=== PATIENT | female | born 1950 | race Caucasian/White ===

== ENCOUNTER 2020-04-23 08:33 | Inpatient (IN) | payer MEDICARE ==
[2020-04-23] MEDS ORDERED: Albuterol 0.083% 2.5 MG/3 ML Neb Soln NEB PRN (12:15)
[2020-04-23] MEDS: Piperacillin/Tazobactam 2.25 GM in Sodium Chloride 0.9% 50 ML IV SCH ×2 (13:00→21:06)
[2020-04-23 13:34] LABS: CARBON DIOXIDE,CO2 19.3 mmol/L (21.0-32.0)
[2020-04-23] MEDS: Lactated Ringers 1,000 ML IV SCH ×2 (13:52→22:49)
[2020-04-23] MEDS ORDERED: Acetaminophen 325 MG Tab PO PRN (16:26)
[2020-04-23] MEDS ORDERED: Lactated Ringers 1,000 ML IV ONE (17:02)
[2020-04-23] MEDS ORDERED: Potassium Chloride Riders 40 MEQ in Premix Bag 1 BAG IV ONE (17:30)
--- NOTE | 2020-04-23 17:36 | HP ---
DATE OF : 1950 PRIMARY CARE PHYSICIAN: None PCP HISTORY OF PRESENT ILLNESS: The patient is a pleasant 69-year-old female who was scheduled to undergo a laparoscopic cholecystectomy today by Dr. Garrett in [place]. The patient says last night she started having some epigastric/right upper quadrant pain again. When she checked in to get her gallbladder removed, she was found to have a low potassium and elevated LFTs. Because of this, the patient was admitted to the [facility] and started on some fluid resuscitation with plans for surgery tomorrow. Unfortunately, Dr. Garrett says the anesthesiologist is not there tomorrow, so they are unable to do a surgery tomorrow at that facility, and she was wondering if she could be transfer to [place] for a procedure. The patient apparently has had a bout earlier this month with elevated LFTs, which returned to normal. She had an ultrasound, which showed thickened gallbladder wall, but no dilated common bile duct. It appears that she has had another bout of cholecystitis this morning. I did agree to accept the patient in transfer. The patient now says her abdominal pain has completely resolved. She says she had a little bit of nausea this morning, but that has also resolved. The patient is feeling pretty good. In [place], they also replaced her potassium. PAST MEDICAL HISTORY: Significant for: 1. Brain tumor. 2. Seizure disorder. 3. Nicotine addiction. CURRENT HOME MEDICATIONS: 1. Zyrtec 1 tablet p.o. daily. 2. Ultram 50 mg p.o. q.6 hours p.r.n. 3. Lipitor 20 mg p.o. daily. 4. Zofran 4 mg p.o. q.6 hours p.r.n. 5. Esomeprazole 40 mg p.o. after breakfast. 6. Aspirin 81 mg p.o. daily. 7. Dilantin 400 mg p.o. at bedtime. ALLERGIES: No known drug allergies. PAST SURGICAL HISTORY: 1. Removal of brain tumor. 2. Wrist surgery. FAMILY HISTORY: She reports both her mother and father had strokes. SOCIAL HISTORY: 1. The patient does smoke 1 pack of cigarettes per day. 2. Denies any illicit drug use. 3. She denies any alcohol use. REVIEW OF SYSTEMS: A complete 10+ review of systems was done and was negative except listed in the HPI. GENITOURINARY: The patient says she does have incontinence of urine. NEUROLOGICAL: The patient does have a history of seizure. She had her last ones in 2017. She says she has no deficit from her brain surgery, although she does not get up and walk around as much as she used to. PHYSICAL EXAMINATION: GENERAL: The patient is lying comfortably on hospital bed. She is alert, in no acute distress. She appears tired and "sleepy," Pt reports being very tired because of staying up with the pain last night and getting up early this morning for surgery. VITAL SIGNS: Temperature is 99.6, pulse is 101, blood pressure 122/80, saturating 96% on room air. HEENT: Head is normocephalic and atraumatic. She is wearing glasses. Mouth: Mucous membranes are moist. She is missing her teeth. She says she left her dentures at home. HEART: Regular rate and rhythm. No murmur appreciated. LUNGS: Perhaps a very slight upper respiratory wheeze, but otherwise clear bilaterally. ABDOMEN: Soft, nontender, and nondistended. Does not reveal any masses. EXTREMITIES: No edema. NEUROLOGIC: Grossly no motor or neurologic deficits noted. LABORATORY DATA: Labs done this morning at [place] shows glucose of 193, BUN of 15.6, creatinine of 0.88, sodium 138, potassium 2.99, chloride 100.4, bicarb is 20.3, calcium 9.18. Alkaline phosphatase is 382, ALT is 66, AST is 105, total bilirubin is 2.59. IMAGING: We do not have imaging reports yet, but per report, it did show some gallbladder thickening, no dilation of common bile duct. ASSESSMENT AND PLAN: This is a pleasant 69-year-old female. It sounds like she has had a recurrent episode of cholecystitis. She has had elevation of her LFTs, however, these have reportedly come back to normal after her last episode. Currently, LFTs are a little elevated. Her lipase and amylase are not elevated. I did go over with the patient what a gallbladder was, and its functionality. The patient says she knew this and had no questions because Dr. Garrett has already gone over this with her. I did go over with her the risks, goals, and alternatives of the surgery. Risks include, but are not limited to, bleeding, infection, bile leak, injury to nearby structures such as duodenum or common bile duct, hernia formation, need to convert to open, and retained gallstone. Also, this could be something other than her gallbladder causing these episodes, although I believe this is unlikely. I also went over potentially we might need to do a cholangiogram. I went over with the patient that we will check her LFTs again tomorrow. If they are not decreasing, she might need an MRCP or an ERCP before the surgery. The patient understands. All her questions were answered. We will recheck her potassium and make sure is replacement is going well. All questions were answered. The patient wishes to be DNR currently, but says during the 24 hours after the surgery she is ok with being full code giving the anesthesia time to wear off. DELFIN CABRERA /[id number] MTDD
--- NOTE | 2020-04-23 18:02 | CR ---
Chest: 2 views of the chest were obtained. Comparison: No previous chest imaging. Heart size is normal. Upper mediastinum is normal. Lung markings are mildly increased suspicious for bronchitis. Lungs otherwise are clear with no alveolar type densities. Bony structures are grossly intact. Impression: 1. Possible bronchitis. 2. No other acute abnormality is appreciated. Diagnostic code #2 Study was dictated in MDT
[2020-04-23] MEDS ORDERED: HYDROmorphone 1 MG/ML Syringe IVPUSH PRN (18:51)
[2020-04-23] MEDS: Acetaminophen/HYDROcodone 325-5 MG Tab PO PRN (19:07)
[2020-04-23] MEDS: Phenytoin 100 MG Cap.ER PO SCH (21:06)
--- NOTE | 2020-04-23 21:50 | PN ---
SUBJECTIVE: Currently, the patient states she is feeling good. She has no complaints. Nurse had called earlier, saying the patient was having increased abdominal pain. The patient said that this pain was very minimal and that is completely gone now. She denies any nausea or vomiting. She states overall she feels good. She also had a slight fever, which has now also resolved with some Tylenol. OBJECTIVE: GENERAL: The patient is sitting comfortably in her hospital bed. She is alert and appears much more awake than she did earlier today. She said she had a good rest. VITAL SIGNS: Temperature is 98.6, heart rate is 97, blood pressure is 110/54, saturating 97% on room air. ABDOMEN: Soft and nondistended. LABORATORY DATA: I did do a repeat of her potassium. Her repeat potassium was 5.0, but this was repeated again and was down to 2.8. This is being replaced with 40 mEq of potassium. White cell count was 17.8, hemoglobin is 11.2, platelet count is 136. Lactic acid was drawn, it was 2.5. Chest x-ray showed heart size normal, upper mediastinum is normal. Some lung markings that are mildly increased, the area is marked potentially with bronchitis. ASSESSMENT AND PLAN: This is a pleasant [id number] female with acute cholecystitis. She does have SIRS with an elevated WBC, temperature, Tachycardia. She did get a boluse of fluid and on broad spectrum antibiotics. She also has hypokalemia. We are replacing her potassium. The patient currently is feeling good and has no abdominal pain. We will follow her. I did go over again with the patient that we will follow up on her labs. She will potentially have laparoscopic cholecystectomy tomorrow. EDLFIN CABRERA /[id number] SADIA
[2020-04-24] MEDS: Ondansetron 4 MG/2 ML SDV IVPUSH PRN (00:54)
[2020-04-24] MEDS: Piperacillin/Tazobactam 2.25 GM in Sodium Chloride 0.9% 50 ML IV SCH ×3 (04:03→20:12)
[2020-04-24 06:26] LABS: BLOOD UREA NITROGEN,BUN 13 mg/dL (7.0-18.0); CARBON DIOXIDE,CO2 21.9 mmol/L (21.0-32.0); CHLORIDE,CL 106 mmol/L (98-107); GLUCOSE RANDOM 112 mg/dL (74-106); LIPASE 23 U/L (73-393); POTASSIUM,K 3.7 mmol/L (3.5-5.1); SODIUM,NA 140 mmol/L (136-145)
[2020-04-24] MEDS: Lactated Ringers 1,000 ML IV SCH ×2 (07:19→18:08)
[2020-04-24] MEDS: Omeprazole 20 MG Cap.CR PO SCH (07:35)
[2020-04-24] MEDS: atorvaSTATin 20 MG Tab PO SCH (10:06)
[2020-04-24] MEDS: PSEUDOEPHEDRINE PO SCH (10:06)
[2020-04-24] MEDS: CETIRIZINE HCL PO SCH (10:06)
--- NOTE | 2020-04-24 10:23 | PCM.PREANE ---
Preanesthetic Assessment - Anesthesia/Transfusion/Family Hx Anesthesia History: Prior Anesthesia Without Reaction Family History of Anesthesia Reaction: No Transfusion History: No Prior Transfusion(s) - Review of Systems General: No Symptoms Pulmonary: No Symptoms Cardiovascular: No Symptoms Neurological: Pre-Existing Deficit Other: Reports: None - Physical Assessment NPO Status Date: 04/23/20 Vital Signs: Last Vital Signs Temp 97.4 F 04/24/20 08:00 Pulse 71 04/24/20 08:00 Resp 16 04/24/20 08:00 BP 102/60 04/24/20 08:00 Pulse Ox 94 L 04/24/20 08:00 Height: 5 ft 4 in Weight: 78.063 kg ASA Class: 2 Mental Status: Alert & Oriented x3 Airway Class: Mallampati = 2 Dentition: Reports: Edentulous ROM/Head Extension: Full Lungs: Clear to Auscultation, Normal Respiratory Effort Cardiovascular: Regular Rate, Regular Rhythm - Lab Values: Laboratory Last Values WBC 14.70 K/uL (4.0-11.0) H 04/24/20 05:29 RBC 3.35 M/uL (4.30-5.90) L 04/24/20 05:29 Hgb 10.2 g/dL (12.0-16.0) L 04/24/20 05:29 Hct 29.8 % (36.0-46.0) L 04/24/20 05:29 MCV 89.0 fL (80.0-98.0) 04/24/20 05:29 MCH 30.4 pg (27.0-32.0) 04/24/20 05:29 MCHC 34.2 g/dL (31.0-37.0) 04/24/20 05:29 RDW Std Deviation 45.4 fl (28.0-62.0) 04/24/20 05:29 RDW Coeff of Larisa 14 % (11.0-15.0) 04/24/20 05:29 Plt Count 107 K/uL (150-400) L 04/24/20 05:29 MPV 8.70 fL (7.40-12.00) 04/24/20 05:29 Neut % (Auto) 88.3 % (48.0-80.0) H 04/24/20 05:29 Lymph % (Auto) 8.0 % (16.0-40.0) L 04/24/20 05:29 Runnels % (Auto) 3.3 % (0.0-15.0) 04/24/20 05:29 Eos % (Auto) 0.3 % (0.0-7.0) 04/24/20 05:29 Baso % (Auto) 0.1 % (0.0-1.5) 04/24/20 05:29 Neut # (Auto) 13.0 K/uL (1.4-5.7) H 04/24/20 05:29 Lymph # (Auto) 1.2 K/uL (0.6-2.4) 04/24/20 05:29 Runnels # (Auto) 0.5 K/uL (0.0-0.8) 04/24/20 05:29 Eos # (Auto) 0.1 K/uL (0.0-0.7) 04/24/20 05:29 Baso # (Auto) 0.0 K/uL (0.0-0.1) 04/24/20 05:29 Add Manual Diff YES 04/23/20 16:40 Neutrophils % (Manual) 93 % (48.0-80.0) H 04/23/20 16:40 Band Neutrophils % 2 % 04/23/20 16:40 Lymphocytes % (Manual) 3 % (16.0-40.0) L 04/23/20 16:40 Monocytes % (Manual) 2 % (0.0-15.0) 04/23/20 16:40 Nucleated RBC % 0.0 /100WBC 04/24/20 05:29 Absolute Seg Neuts 16.6 (1.4-5.7) H 04/23/20 16:40 Band Neutrophils # 0.4 04/23/20 16:40 Lymphocytes # (Manual) 0.5 (0.6-2.4) L 04/23/20 16:40 Monocytes # (Manual) 0.4 (0.0-0.8) 04/23/20 16:40 Nucleated RBCs # 0 K/uL 04/24/20 05:29 Lactate 1.7 mmol/L (0.20-2.00) 04/23/20 21:49 Sodium 140 mmol/L (136-145) 04/24/20 05:29 Potassium 3.7 mmol/L (3.5-5.1) 04/24/20 05:29 Chloride 106 mmol/L (98-107) 04/24/20 05:29 Carbon Dioxide 21.9 mmol/L (21.0-32.0) 04/24/20 05:29 BUN 13 mg/dL (7.0-18.0) 04/24/20 05:29 Creatinine 0.8 mg/dL (0.6-1.0) 04/24/20 05:29 Est Cr Clr Drug Dosing 58.12 mL/min 04/24/20 05:29 Estimated GFR (MDRD) > 60.0 ml/min 04/24/20 05:29 Glucose 112 mg/dL (74-106) H 04/24/20 05:29 Calcium 7.8 mg/dL (8.5-10.1) L 04/24/20 05:29 Magnesium 1.4 mg/dL (1.8-2.4) L 04/24/20 06:49 Total Bilirubin 2.5 mg/dL (0.2-1.0) H 04/24/20 05:29 AST 39 IU/L (15-37) H 04/24/20 05:29 ALT 38 IU/L (14-63) 04/24/20 05:29 Alkaline Phosphatase 236 U/L (46-116) H 04/24/20 05:29 Total Protein 5.3 g/dL (6.4-8.2) L 04/24/20 05:29 Albumin 2.2 g/dL (3.4-5.0) L 04/24/20 05:29 Globulin 3.1 g/dL (2.6-4.0) 04/24/20 05:29 Albumin/Globulin Ratio 0.7 (0.9-1.6) L 04/24/20 05:29 Amylase 18 U/L (25-115) L 04/24/20 05:29 Lipase 23 U/L (73-393) L 04/24/20 05:29 Urine Color YELLOW 04/23/20 21:15 Urine Appearance SLT CLOUDY 04/23/20 21:15 Urine pH 5.5 (5.0-8.0) 04/23/20 21:15 Ur Specific Ripley 1.015 (1.001-1.035) 04/23/20 21:15 Urine Protein TRACE mg/dL (NEGATIVE) H 04/23/20 21:15 Urine Glucose (UA) NEGATIVE mg/dL (NEGATIVE) 04/23/20 21:15 Urine Ketones TRACE mg/dL (NEGATIVE) H 04/23/20 21:15 Urine Occult Blood SMALL (NEGATIVE) H 04/23/20 21:15 Urine Nitrite POSITIVE (NEGATIVE) H 04/23/20 21:15 Urine Bilirubin MODERATE (NEGATIVE) H 04/23/20 21:15 Urine Ictotest POSITIVE 04/23/20 21:15 Urine Urobilinogen 2.0 EU/dL (<2.0) H 04/23/20 21:15 Ur Leukocyte Esterase NEGATIVE (NEGATIVE) 04/23/20 21:15 Urine RBC 1-3 (0-2/HPF) 04/23/20 21:15 Urine WBC 5-8 (0-5/HPF) 04/23/20 21:15 Ur Epithelial Cells MODERATE (NONE-FEW) 04/23/20 21:15 Amorphous Sediment LIGHT (NEGATIVE) 04/23/20 21:15 Urine Bacteria 2+ (NEGATIVE) H 04/23/20 21:15 Urine Mucus LIGHT (NONE-MOD) 04/23/20 21:15 SARS Virus RNA (PCR) NEGATIVE (NEGATIVE) 04/23/20 11:30 - Allergies Allergies/Adverse Reactions: Allergies Allergy/AdvReac Type Severity Reaction Status Date / Time No Known Allergies Allergy Verified 04/23/20 11:17 - Anesthesia Plan Pre-Op Medication Ordered: None - Acknowledgements Anesthesia Type Planned: General Anesthesia Pt an Appropriate Candidate for the Planned Anesthesia: Yes Alternatives and Risks of Anesthesia Discussed w Pt/Guardian: Yes Pt/Guardian Understands and Agrees with Anesthesia Plan: Yes PreAnesthesia Questionnaire HEENT History: Reports: Other (See Below) Other HEENT History: brain tumor that was removed Gastrointestinal History: Reports: GERD PSYCHOLOGY LECTURER History: Reports: Neurological History: Reports: Seizure - Past Surgical History Musculoskeletal Surgical History: Reports: Other (See Below) Other Musculoskeletal Surgeries/Procedures:: wrist surgery - SUBSTANCE USE Smoking Status *Q: Former Smoker Recreational Drug Use History: No - HOME MEDS Home Medications: Home Meds Aspirin [Adult Low Dose Aspirin EC] 81 mg PO QAM 04/23/20 [History] Cetirizine HCl/Pseudoephedrine [ZyrTEC-D] 1 tab PO DAILY 04/23/20 [History] Esomeprazole Magnesium 40 mg PO ACBREAKFAST 04/23/20 [History] Ondansetron [Zofran ODT] 4 mg PO Q6H PRN 04/23/20 [History] Phenytoin Sodium Extended [Dilantin] 400 mg PO BEDTIME 04/23/20 [History] atorvaSTATin [Lipitor] 20 mg PO DAILY 04/23/20 [History] traMADol [Ultram] 50 mg PO Q6H PRN 04/23/20 [History] - CURRENT (IN HOUSE) MEDS Current Meds: Current Medications Acetaminophen (Tylenol) 650 mg PO Q6H PRN PRN Reason: Pain/Fever Last Admin: 04/23/20 16:48 Dose: 650 mg Documented by: Hydrocodone Bitart/Acetaminophen (Kell 325-5 Mg) 1 tab PO Q6H PRN PRN Reason: Pain Last Admin: 04/23/20 19:07 Dose: 1 tab Documented by: Albuterol (Proventil Neb Soln) 2.5 mg NEB Q2H PRN PRN Reason: Shortness Of Breath/wheezing Atorvastatin Calcium (Lipitor) 20 mg PO DAILY [facility] Last Admin: 04/24/20 10:06 Dose: Not Given Documented by: Hydromorphone HCl (Dilaudid) 0.5 mg IVPUSH Q4H PRN PRN Reason: Pain (moderate 4-6) Last Admin: 04/24/20 00:41 Dose: 0.5 mg Documented by: Lactated Ringer's (Ringers, Lactated) 1,000 mls @ 125 mls/hr IV ASDIRECTED [facility] Last Admin: 04/24/20 07:19 Dose: 125 mls/hr Documented by: Piperacillin Sod/Tazobactam (Sod 2.25 gm/ Sodium Chloride) 50 mls @ 100 mls/hr IV Q8H [facility] Last Admin: 04/24/20 04:03 Dose: 100 mls/hr Documented by: Omeprazole (Omeprazole) 40 mg PO ACBREAKFAST [facility] Last Admin: 04/24/20 07:35 Dose: Not Given Documented by: Ondansetron HCl (Zofran) 4 mg IVPUSH Q4H PRN PRN Reason: Nausea Last Admin: 04/24/20 00:54 Dose: 4 mg Documented by: Cetirizine Hcl/Pseudoephedrine [ Zyrtec-D] 1 Tab 1 each PO DAILY [facility] Last Admin: 04/24/20 10:06 Dose: Not Given Documented by: Phenytoin Sodium (Phenytoin) 400 mg PO BEDTIME [facility] Last Admin: 04/23/20 21:06 Dose: 400 mg Documented by: Discontinued Medications Potassium Chloride 40 meq/ (Premix) 100 mls @ 25 mls/hr IV ONETIME ONE Stop: 04/23/20 21:29 Last Admin: 04/23/20 17:57 Dose: 25 mls/hr Documented by: Lactated Ringer's (Ringers, Lactated) 1,000 mls @ 999 mls/hr IV .BOLUS ONE Stop: 04/23/20 18:02 Last Admin: 04/23/20 17:30 Dose: 999 mls/hr Documented by:
--- NOTE | 2020-04-24 13:49 | MR ---
MRI abdomen Technique: Multiple axial, coronal and sagittal images were obtained as well as MRCP of the abdomen. Intravenous contrast not utilized. Comparison: No prior abdominal imaging is available. Findings: Large amount of sludge is noted within the gallbladder. Gallbladder is distended. Common bile duct measures normal in size. No discrete filling defects are seen to indicate choledocholithiasis. No retroperitoneal adenopathy is seen. Aorta shows no aneurysm. Kidneys show small cysts some of which are hemorrhagic. Kidneys show no hydronephrosis. Pancreas shows no discrete abnormality. Adrenal glands show no discrete abnormality. Liver shows no focal abnormality. Impression: 1. Large amount of sludge within the gallbladder. No biliary duct dilatation seen. No definite findings of choledocholithiasis. Consider biliary HIDA scan with ejection fraction to further evaluate. 2. Cysts within the kidneys. 3. No additional abnormality is appreciated. Diagnostic code #3 Study was dictated in MDT
[2020-04-24] MEDS ORDERED: Magnesium Sulfate/Water 2 GM in Premix Bag 1 BAG IV ONE (16:17)
--- NOTE | 2020-04-24 17:47 | PN ---
SUBJECTIVE: The patient was seen this morning and this afternoon. This morning, the patient said she was feeling well. She denies any abdominal pain. She had no more fevers overnight. She has no complaints. She was seen and examined by Dr. Guajardo, the anesthesiologist. Anesthesia felt that maybe one more day with hydration, IV antibiotics since the patient had SIRS yesterday with a fever, tachycardia, and elevated white cell count. One more day of fluid resuscitations would benefit the patient. Also, we will get MRCP. Her bilirubin is still elevated at 2.5, although it is trending down. OBJECTIVE: GENERAL: The patient is sitting really comfortably in her bed. She is alert. VITAL SIGNS: In the afternoon, temperature was 97.7, pulse is 78, blood pressure is 123/58, saturating at 93% on room air. ABDOMEN: Soft, nontender, and nondistended. IMAGING: Did get the MRCP report back, which just showed a large gallbladder with a sludge in the gallbladder, but no filling defects for choledocholithiasis. LABORATORIES: This morning, white cell count was 14.7, hemoglobin is 10.2, platelet count is 107. Sodium 140, potassium 3.7, creatinine 0.8, BUN 13. Total bilirubin 2.5, AST is 39, ALT is 38, alkaline phosphatase is 236. She also did a UA yesterday, which showed a potential for a UTI with 2+ bacteria and positive for nitrite. This was sent for culture and no growth after 1 day. ASSESSMENT AND PLAN: This is a pleasant 69-year-old female with a recurrent symptomatic cholelithiasis and cholecystitis. She was admitted yesterday with correction of her electrolytes and antibiotics. She is doing much better today. We will continue to hydrate her, let her have some fluids for supper, and then plan for a surgery tomorrow. Again, I talked with the patient about this. The patient understands the plan and wants to proceed with the surgery tomorrow. DELFIN / RICK /[id number] MTDJenny
[2020-04-24] MEDS: Phenytoin 100 MG Cap.ER PO SCH (20:17)
[2020-04-25] MEDS: Lactated Ringers 1,000 ML IV SCH ×2 (02:21→15:35)
[2020-04-25] MEDS: Piperacillin/Tazobactam 2.25 GM in Sodium Chloride 0.9% 50 ML IV SCH (04:08)
[2020-04-25 06:18] LABS: BLOOD UREA NITROGEN,BUN 9 mg/dL (7.0-18.0); CHLORIDE,CL 101 mmol/L (98-107); GLUCOSE RANDOM 103 mg/dL (74-106); POTASSIUM,K 3.2 mmol/L (3.5-5.1); SODIUM,NA 135 mmol/L (136-145)
[2020-04-25] MEDS ORDERED: Rocuronium Bromide 50 MG/5 ML Syringe ONE ×2 (07:14→11:51)
[2020-04-25] MEDS ORDERED: Ondansetron 4 MG/2 ML SDV ONE (07:14)
[2020-04-25] MEDS ORDERED: Ketorolac 30 MG/ML SDV ONE (07:14)
[2020-04-25] MEDS ORDERED: Propofol 200 MG/20 ML SDV ONE (07:14)
[2020-04-25] MEDS ORDERED: Midazolam 1 MG/ML 2 ML SDV ONE (07:14)
[2020-04-25] MEDS ORDERED: fentaNYL 250 MCG/5 ML SDV ONE ×2 (07:14→11:31)
[2020-04-25] MEDS ORDERED: Lidocaine 2% 5 ML SDV ONE (07:14)
[2020-04-25] MEDS ORDERED: Glycopyrrolate 0.2 MG/ML SDV ONE ×2 (07:14→13:16)
[2020-04-25] MEDS ORDERED: ceFAZolin 1 GM Vial ONE (07:29)
[2020-04-25] MEDS ORDERED: Sodium Chloride 0.9% 20 ML ONE ×2 (07:29→11:05)
[2020-04-25] MEDS ORDERED: Potassium Chloride Riders 20 MEQ in Premix Bag 1 BAG IV ONE ×2 (07:30→08:33)
[2020-04-25] MEDS: NS + KCl 20mEq/L 1,000 ML IV ONE ×2 (08:23→08:52)
[2020-04-25] MEDS: Omeprazole 20 MG Cap.CR PO SCH (09:41)
[2020-04-25] MEDS: atorvaSTATin 20 MG Tab PO SCH (09:41)
[2020-04-25] MEDS: CETIRIZINE HCL PO SCH (09:42)
[2020-04-25] MEDS ORDERED: Bupivacaine 25%/EPINEPHrine/PF 30 ML ONE (09:42)
[2020-04-25] MEDS: PSEUDOEPHEDRINE PO SCH (09:42)
[2020-04-25] MEDS ORDERED: Octyl 2-Cyanoacrylate 1 Tube ONE (09:42)
[2020-04-25] MEDS ORDERED: fentaNYL 100 MCG/2 ML SDV IVPUSH PRN (10:15)
--- NOTE | 2020-04-25 11:39 | PN ---
SUBJECTIVE: The patient is doing well. She has no complaints. She feels ready for her surgery today. OBJECTIVE: GENERAL: The patient is sitting comfortably in her hospital bed. She is alert and oriented, in no acute distress. VITAL SIGNS: Temperature is 98.5, pulse is 83, blood pressure is 126/65, saturating 96% on room air. LUNGS: Clear to auscultation bilaterally. No rhonchi or wheezing heard. HEART: Regular rhythm. No murmur appreciated. ABDOMEN: Soft and nondistended. Very minimal right upper quadrant tenderness to deep palpation. LABORATORY DATA: White cell count is 13.99, hemoglobin is 10.2, platelet count is 118. Sodium is 135, potassium 3.2, BUN is 9, creatinine is 0.7, glucose is 103, total bilirubin 1.3, AST is 27, ALT is 32, alkaline phosphatase is 234. ASSESSMENT AND PLAN: This is a pleasant 69-year-old female with acute cholecystitis. Plan for laparoscopic cholecystectomy later today. She did have a magnetic resonance cholangiopancreatography yesterday, did show with a sludge in the gallbladder. No choledocholithiasis was seen. The patient's bilirubin is trending down nicely. We will replace her potassium. This morning, her magnesium is back up to 1.8. I again answered all the patient's questions. She has none and she feels ready for the surgery. DELFIN CABRERA /[id number]
[2020-04-25] MEDS ORDERED: fentaNYL 100 MCG/2 ML SDV ONE ×3 (11:50→12:45)
[2020-04-25] MEDS ORDERED: Piperacillin/Tazobactam 3.375 GM in Sodium Chloride 0.9% 100 ML IV SCH (12:00)
[2020-04-25] MEDS ORDERED: Phenylephrine 1% 10 MG/ML SDV ONE (13:00)
[2020-04-25] MEDS ORDERED: HYDROmorphone 2 MG/ML Syringe ONE (13:14)
--- NOTE | 2020-04-25 14:08 | PCM.OPNOTE ---
- General Post-Op/Procedure Note Date of Surgery/Procedure: 04/25/20 Operative Procedure(s): laparoscopic cholecystectomy Findings: Purulent gallbladder #[id number] Pre Op Diagnosis: Acute cholecystitis Post-Op Diagnosis: Acute cholecystitis Anesthesia Technique: General ET Tube Primary Surgeon: Eddie Cruz Pathology: gallbladder EBL in mLs: 35 Complications: None Condition: Good Free Text/Narrative:: Intake & Output 04/24/20 04/25/20 04/25/20 22:59 06:59 14:59 Intake Total 1150 1418 Output Total 200 100 Balance 950 1318
[2020-04-25] MEDS ORDERED: HYDROmorphone 1 MG/ML Syringe IVPUSH PRN (14:25)
--- NOTE | 2020-04-25 15:22 | PCM.POSTAN ---
POST ANESTHESIA ASSESSMENT - MENTAL STATUS Mental Status: Somnolent Free Text/Narrative:: arouses easily to voice - VITAL SIGNS Vital Signs: Last Vital Signs Temp 99.7 F 04/25/20 13:54 Pulse 75 04/25/20 15:15 Resp 12 04/25/20 15:15 BP 102/52 L 04/25/20 15:15 Pulse Ox 96 04/25/20 15:15 - RESPIRATORY Respiratory Status: Respiratory Rate WNL, Airway Patent, O2 Saturation Stable Free Text/Narrative:: stable and increasing, now 95-96% on NC - CARDIOVASCULAR CV Status: Pulse Rate WNL, Blood Pressure Stable - GASTROINTESTINAL GI Status: No Symptoms - PAIN Pain Score: 0 - POST OP HYDRATION Hydration Status: Adequate & Stable
[2020-04-25] MEDS: Piperacillin/Tazobactam 3.375 GM in Sodium Chloride 0.9% 100 ML IV SCH ×2 (16:13→21:31)
[2020-04-25] MEDS: Phenytoin 100 MG Cap.ER PO SCH (21:30)
[2020-04-26] MEDS: Lactated Ringers 1,000 ML IV SCH ×2 (00:57→10:56)
[2020-04-26] MEDS: Piperacillin/Tazobactam 3.375 GM in Sodium Chloride 0.9% 100 ML IV SCH ×4 (03:42→23:05)
[2020-04-26] MEDS: Ondansetron 4 MG/2 ML SDV IVPUSH PRN (03:43)
[2020-04-26] MEDS: Acetaminophen/HYDROcodone 325-5 MG Tab PO PRN ×4 (03:43→23:09)
[2020-04-26 06:20] LABS: BLOOD UREA NITROGEN,BUN 7 mg/dL (7.0-18.0); CARBON DIOXIDE,CO2 21.3 mmol/L (21.0-32.0); CHLORIDE,CL 102 mmol/L (98-107); GLUCOSE RANDOM 115 mg/dL (74-106); POTASSIUM,K 3.3 mmol/L (3.5-5.1); SODIUM,NA 135 mmol/L (136-145)
[2020-04-26] MEDS: Omeprazole 20 MG Cap.CR PO SCH (08:36)
[2020-04-26] MEDS: atorvaSTATin 20 MG Tab PO SCH (08:38)
[2020-04-26] MEDS: PSEUDOEPHEDRINE PO SCH (08:39)
[2020-04-26] MEDS: CETIRIZINE HCL PO SCH (08:39)
--- NOTE | 2020-04-26 11:20 | OR ---
SURGEON: CARLYN VILLAR MD DATE OF PROCEDURE: 04/25/2020 PREOPERATIVE DIAGNOSIS: Acute cholecystitis. POSTOPERATIVE DIAGNOSIS: Acute cholecystitis. PROCEDURE PERFORMED: Laparoscopic cholecystectomy. ANESTHESIA: General. PRIMARY SURGEON: Carlyn Villar MD ESTIMATED BLOOD LOSS: 35 mL. COMPLICATIONS: None. SPECIMEN: Gallbladder. FINDINGS: Gallbladder with omentum well adhered to it and with purulent material in the gallbladder. REASON FOR PROCEDURE: The patient is a pleasant 69-year-old female, who has had recurrent episodes of cholecystitis. She was supposed to have a cholecystectomy on Thursday in [place], but she had another attack, and she was transferred to our hospital for definitive treatment. The patient was hydrated and electrolytes replaced and started on antibiotics. Her electrolytes have subsequently improved and she is now ready to have laparoscopic cholecystectomy. I did go over with the patient risks, goals, and alternatives to procedure. The patient understands and wishes to proceed. OPERATION NARRATIVE: The patient was brought back to the OR. She was prepped and draped in the usual sterile fashion. SCDs were placed. The patient was already on antibiotics. Anesthesia was provided by the Anesthesia team. After time-out was performed, an infraumbilical incision was made down to the fascia. Two stay sutures were placed with 0-Vicryl sutures, and abdomen was entered in an open technique using the Frantz trocar. Frantz trocar was placed and insufflation was begun. The abdomen was inspected. No entry wound was visualized. Three more 5 mm trocars were placed, 1 in the mid epigastric, 1 in the right upper quadrant, 1 in the lower mid right abdomen. The patient was then placed in the head-up position and airplaned towards myself. The omentum was very adhered to the gallbladder. This took a little bit of time to gently dissect the omentum off the gallbladder. The omentum was more adhered to on the fundus and body of the gallbladder. Once the omentum was peeled off, the fundus was then grasped and the gallbladder elevated. The fundus tore where the grasper was and a small hole formed. Purulent material came out. This was suctioned and then using the hole the suction tip was placed in, and the rest of the purulent material was suctioned out of the gallbladder. The hole was grasped and elevated. Now the infundibulum of the gallbladder was grasped. Luckily, around the infundibulum, the omentum was not stuck. It was edematous though, but with careful, mainly blunt dissection, I did get a good look at the cystic duct, cystic artery, and liver bed. The gallbladder was freed up about a quarter way up the fossa for a greater critical view. I then was able to place clips on both the cystic duct and cystic artery, and they were transected. The cystic artery was pulsating. The rest of the gallbladder was taken off the fossa with Harmonic scalpel. No other tubular structures were encountered. There was good hemostasis. Gallbladder was placed in Endo Catch bag and removed. Because of the size of the gallbladder, I did have to extend my fascial and skin incision to accommodate gallbladder removal. The Frantz trocar was placed back in and the gallbladder fossa was then inspected. There was good hemostasis. The abdomen was suction irrigated out. Clips appeared to still be intact and in place. Now the 5 mm trocars were removed and Frantz trocar removed. The Frantz incision was then closed with 2 [id number] 0-Vicryls and stay sutures were also used to close the fascial defect. All the trocar sites were again injected with local. All the sites were closed with 4-0 Monocryl and Dermabond. The patient was transferred to recovery room in stable condition. Sponge and needle counts were correct. DELFIN CABRERA /[id number] SADIA
--- NOTE | 2020-04-26 11:43 | PN ---
SUBJECTIVE: The patient rested comfortably in her hospital bed. She is alert. I did go over with the surgery with the patient and answered her questions. The patient says she is feeling good. The patient had to be straight catheterized once after the surgery yesterday. Now, she has had several incontinent urination. The patient was incontinent before the surgery. OBJECTIVE: GENERAL: The patient is sitting comfortably in bed. VITAL SIGNS: Temperature is 98.5, blood pressure is 159/74, saturating 94% on room air, heart rate is 81. ABDOMEN: Soft, nondistended. Some expected incisional tenderness. Incision sites are clean, dry, and intact. Dermabond in place. No signs of infection. LABORATORY DATA: White blood cell count 8.11, hemoglobin 9.8, platelet count is 133. ASSESSMENT AND PLAN: This is a pleasant 69-year-old female who is postop day 1 from laparoscopic cholecystectomy for purulent gallbladder. She is doing well. She is urinating. The patient is not passing any flatus, but has no nausea or vomiting. I did go over with the patient her surgery and answered her questions. We will advance the patient's diet, decrease her IV fluids. Since it was a purulent gallbladder, and she did have the urinary tract infection, we will continue antibiotics one more day. I will also get physical therapy for a home evaluation. Plan for discharge potentially later today, but more likely tomorrow morning. DELFIN CABRERA /[id number] SADIA
[2020-04-26] MEDS: Phenytoin 100 MG Cap.ER PO SCH (23:03)
[2020-04-27] MEDS: Piperacillin/Tazobactam 3.375 GM in Sodium Chloride 0.9% 100 ML IV SCH ×2 (04:14→10:01)
[2020-04-27] MEDS: Acetaminophen/HYDROcodone 325-5 MG Tab PO PRN (04:15)
[2020-04-27] MEDS: Omeprazole 20 MG Cap.CR PO SCH (08:36)
[2020-04-27] MEDS: atorvaSTATin 20 MG Tab PO SCH (08:36)
[2020-04-27] MEDS: CETIRIZINE HCL PO SCH (10:38)
[2020-04-27] MEDS: PSEUDOEPHEDRINE PO SCH (10:38)
--- NOTE | 2020-04-27 11:11 | DISCH ---
DATE OF DISCHARGE: 04/27/2020 PRIMARY CARE PHYSICIAN: Shashi PCP PRIMARY DISCHARGE DIAGNOSES: 1. Acute cholecystitis. 2. Systemic inflammatory response syndrome. 3. Urinary tract infection. 4. Hypokalemia. 5. Hypomagnesemia. SECONDARY DIAGNOSES: 1. History of seizure disorder. 2. History of brain tumor. 3. Nicotine addiction. 4. History of stroke. PROCEDURE PERFORMED: Laparoscopic cholecystectomy, done on 04/25/2020. IMAGING DATA: Magnetic resonance cholangiopancreatography done on 04/24/2020. DISCHARGE MEDICATIONS: 1. Lipitor 20 mg p.o. daily. 2. Dilantin 400 mg p.o. at bedtime. 3. Aspirin 81 mg p.o. daily. 4. Esomeprazole 40 mg p.o. at breakfast. 5. Zofran 4 mg p.o. q.6 h. p.r.n. 6. Ultram 50 mg p.o. q.6 h. p.r.n. 7. Zyrtec 1 tablet p.o. daily. 8. [place] 5/325 1 tablet q.6 h. p.r.n. acute pain after cholecystectomy. REASON FOR ADMISSION: The patient is a pleasant 69-year-old female who has had several acute cholecystitis attacks. She was scheduled for cholecystectomy in [place], however, on the day of her surgery, she was found to have acute cholecystitis and she was transferred to [place] for further cares. HOSPITAL COURSE: The patient was admitted to the hospital. On admission, the patient did have an elevated white cell count, tachycardia, elevated lactic acid, and hypokalemia. The patient was given a fluid bolus and started on antibiotics. At that time, UA was also done, which showed urinary tract infection. The patient improved the next day with hydration and electrolyte replacement and IV antibiotics. The patient did have an MRI on 04/24/2020, which showed a large amount of sludge within the gallbladder with no definitive findings of choledocholithiasis. On 04/25/2020, the patient was taken back to the OR for a laparoscopic cholecystectomy. The patient tolerated the procedure well. The gallbladder was thickened and had purulent material inside the gallbladder. The patient's recovery was unremarkable. The patient's diet was advanced. At the time of discharge, the patient was tolerating diet, passing flatus. She was evaluated by Physical Therapy, who said she had no further need of physical therapy. The patient felt ready to go home. DISCHARGE EXAMINATION: GENERAL: The patient is lying comfortably in the hospital bed. She is alert and oriented, in no acute distress. VITAL SIGNS: Temperature is 98.1, pulse is 81, blood pressure is 158/75, saturating 94% on room air. LUNGS: Clear to auscultation bilaterally. No rhonchi or wheezing heard. HEART: Regular rate and rhythm. No murmur appreciated. ABDOMEN: Soft and nondistended. She does have a minimal incisional tenderness. Incisions are clean, dry, and intact. Dermabond in place. DISCHARGE INSTRUCTIONS: I did go over with the patient that she should take it easy and no strenuous activity or heavy lifting for the next 2 weeks. She may resume her normal diet. She needs to follow up with her primary care provider to monitor resolution of her urinary tract infection. She needs follow up with me in 2 weeks to go over the pathology and for her postoperative visit. She should come back sooner if she develops any nausea, vomiting, fevers, chills, any increased pain, any changes to her incision such as erythema or drainage. I did go over with her that she is at slightly higher risk for an abscess formation, because she did have purulent material in her gallbladder. The patient says she understands. All of the patient's questions were answered. ADDENDUM: Despite the family and the patient being okay with discharge home with home health, they later changed their mind and want to go to a swing bed. Swing bed in [place] was called, and they are willing to take the patient back. I did speak with Minal Alejandra. I went over the hospital course of the patient. The patient will be transferring to the [place] swing bed. I did go over with her that the patient does not need antibiotics anymore. I did go over that the patient did have a purulent gallbladder and is at risk for potentially abscess formation later on. They need to call if she has any nausea, vomiting, fever, or chills. She also needs a followup for her UTI. All of the questions were answered, and they may contact us any time if they have any further questions with the care of this patient. DELFIN CABRERA /[id number] SADIA
--- NOTE | 2020-04-27 13:59 | DISCH ---
DATE OF DISCHARGE: 04/27/2020 PRIMARY CARE PHYSICIAN: None PCP ADDENDUM: Despite the family and the patient being okay with discharge home with home health, they later changed their mind and want to go to a swing bed. Swing bed in [place] was called, and they are willing to take the patient back. I did speak with Minal Alejandra. I went over the hospital course of the patient. The patient will be transferring to the [place] swing bed. I did go over with her that the patient does not need antibiotics anymore. I did go over that the patient did have a purulent gallbladder and is at risk for potentially abscess formation later on. They need to call if she has any nausea, vomiting, fever, or chills. She also needs a followup for her UTI. All of the questions were answered, and they may contact us any time if they have any further questions with the care of this patient. DELFIN CABRERA /[id number] SADIA
[2020-04-27] MEDS ORDERED: Phenytoin 100 MG Cap.ER PO SCH (21:00)
== END 2020-04-27 12:45 | disposition home health service (06) | DRG 418 ==
LOC: MW.MS 08:33 → OBSVTOIN 04-25 08:33
PROVIDERS: ADMIT Surgery; ATTEND Surgery
PROC: 0FT44ZZ Resection of Gallbladder, Percutaneous Endoscopic Approach (ICD-10-PCS; principal; 2020-04-25)
DX: K80.00 Calculus of gallbladder with acute cholecystitis without obstruction (principal); R65.10 Systemic inflammatory response syndrome (SIRS) of non-infectious origin without acute organ dysfunction; N39.0 Urinary tract infection, site not specified; K80.12 Calculus of gallbladder with acute and chronic cholecystitis without obstruction; Z20.828 Contact with and (suspected) exposure to other viral communicable diseases; E87.6 Hypokalemia; G40.909 Epilepsy, unspecified, not intractable, without status epilepticus; Z86.73 Personal history of transient ischemic attack (TIA), and cerebral infarction without residual deficits; Z79.82 Long term (current) use of aspirin; Z79.899 Other long term (current) drug therapy; Z98.890 Other specified postprocedural states; F17.210 Nicotine dependence, cigarettes, uncomplicated
CPT/HCPCS: 36415 ×3; 47562; 71045; 74181; 80053 ×3; 81001; 82150; 83605 ×2; 83690; 83735 ×2; 84132 ×2; 85025 ×3; 87086; 96361 ×3; 96365; 96375; 96376 ×2; A9270 ×4; G0378 ×4; J0690; J1170; J1885; J2001; J2250; J2405 ×2; J2543 ×6; J2704; J3010; J3475; J3480; J3490; J7050 ×6; J7120 ×6; U0002; 00790; 80048; 88304; 97161-GP; 99220; 99225; J2370